=== PATIENT | female | born 1970 ===

== ENCOUNTER 2021-03-22 06:00 | Day surgery (SDC) | payer OTHER ==
[~2021-03-22 06:00] MED LIST: CLEOCIN HCL300 MG PO
== END 2021-03-22 10:40 | disposition home or self-care (01) ==
LOC: CIR.AMB 06:00
PROVIDERS: ATTEND Orthopaedic Surgery Hand Surgery
DX: D18.01 Hemangioma of skin and subcutaneous tissue (principal); Z20.822 Contact with and (suspected) exposure to COVID-19